=== PATIENT | female | born 1965 | race Two or more races ===

== ENCOUNTER → 2024-07-20 | Outpatient (CLI) | payer OTHER, SELFPAY ==
[2024-07-20 08:56] LABS: Prothrombin Time 21.1 Seconds (9.0-12.2)
== END | disposition home or self-care (01) ==
PROVIDERS: PCP Nurse Practitioner Family; Referring Provider Internal Medicine Cardiovascular Disease; Visit Provider Internal Medicine Cardiovascular Disease
DX: Z01.89 Encounter for other specified special examinations (principal)
CPT/HCPCS: 36415; 85610

== ENCOUNTER → 2024-09-01 | Outpatient (CLI) | payer OTHER, SELFPAY ==
[2024-09-01 17:58] LABS: INR 1.9 (0.9-1.3); Prothrombin Time 20.3 Seconds (9.0-12.2)
== END | disposition home or self-care (01) ==
LOC: COPL 16:26
PROVIDERS: Referring Provider Internal Medicine Cardiovascular Disease; Visit Provider Internal Medicine Cardiovascular Disease
DX: Z01.89 Encounter for other specified special examinations (principal)
CPT/HCPCS: 36415; 85610

== ENCOUNTER → 2024-09-28 | Outpatient (CLI) | payer OTHER, SELFPAY ==
[2024-09-28 08:37] LABS: Basophils % (Auto) 1 % (0-2.5); Eosinophils # (Auto) 0.1 Thou/mm3 (0.0-0.5); Eosinophils % (Auto) 3 % (0-10); Hematocrit 40.3 % (36.0-46.0); Hemoglobin 13.2 g/dL (12.0-16.0); Immature Granulocytes % (Auto) 0 % (0-0); Lymphocytes # (Auto) 1.2 Thou/mm3 (1.0-4.8); Lymphocytes % (Auto) 56 % (10-50); Mean Corpuscular HGB Conc 32.8 g/dl (31.0-37.0); Mean Corpuscular Hemoglobin 28.8 pg (25.0-35.0); Mean Corpuscular Volume 88 fL (80-100); Monocytes # (Auto) 0.3 Thou/mm3 (0.0-0.8); Monocytes % (Auto) 14 % (0-12); Neutrophils # (Auto) 0.6 Thou/mm3 (1.8-7.7); Neutrophils % (Auto) 26 % (37-80); Nucleated Red Blood Cell % 0 /100 WBC (0); Platelet Count 217 Thou/mm3 (140-440); RDW Standard Deviation 41.4 fL (36.4-46.3); Red Blood Count 4.59 Miln/mm3 (4.00-5.20)
[2024-09-28 08:47] LABS: White Blood Count 2.2 Thou/mm3 (3.6-11.0)
[2024-09-28 09:00] LABS: Alanine Aminotransferase 21 U/L (10-49); Albumin/Globulin Ratio 1.3 (1.2-2.2); Alkaline Phosphatase 77 U/L (46-116); Anion Gap 9 (7-16); Aspartate Amino Transferase 20 U/L (0-34); BUN/Creatinine Ratio 23 Ratio (12-20); Bilirubin,Total 0.3 mg/dL (0.3-1.2); Blood Urea Nitrogen 18 mg/dL (9-23); Calcium 9.2 mg/dL (8.3-10.6); Calcium (Corrected) 9.2 mg/dL (8.5-10.1); Carbon Dioxide 24.6 mMol/L (20.0-31.0); Chloride 109 mMol/L (98-107); Creatinine (Component) 0.8 mg/dL (0.6-1.3); Free T4 (Free Thyroxine) 1.04 ng/dL (0.89-1.76); Globulin 3.1 gm/dL (2.3-3.5); Glucose 94 mg/dL (74-106); Osmolality,Calculated 286 (275-295); Potassium 4.3 mMol/L (3.4-5.1); Sodium 143 mMol/L (136-145); Thyroid Stimulating Hormone 4.22 uIU/mL (0.55-4.78); Total Protein 7.1 gm/dL (5.7-8.2); eGFR > 60 See Note
== END | disposition home or self-care (01) ==
PROVIDERS: PCP Nurse Practitioner Family; Referring Provider Nurse Practitioner Family; Visit Provider Nurse Practitioner Family
DX: D72.819 Decreased white blood cell count, unspecified (principal)
CPT/HCPCS: 36415; 80053; 84439; 84443; 85025

== ENCOUNTER → 2024-10-13 | Outpatient (CLI) | payer OTHER, SELFPAY ==
[2024-10-13 17:57] LABS: INR 1.5 (0.9-1.3); Prothrombin Time 16.1 Seconds (9.0-12.2)
== END | disposition home or self-care (01) ==
LOC: COPL 16:56
PROVIDERS: PCP Nurse Practitioner Family; Referring Provider Internal Medicine Cardiovascular Disease; Visit Provider Internal Medicine Cardiovascular Disease
DX: I48.0 Paroxysmal atrial fibrillation (principal)
CPT/HCPCS: 36415; 85610

== ENCOUNTER → 2024-10-28 | Outpatient (CLI) | payer OTHER, SELFPAY ==
[2024-10-28 09:03] LABS: INR 2.3 (0.9-1.3); Prothrombin Time 23.7 Seconds (9.0-12.2)
== END | disposition home or self-care (01) ==
LOC: COPL 08:16
PROVIDERS: PCP Nurse Practitioner Family; Referring Provider Internal Medicine Cardiovascular Disease; Visit Provider Internal Medicine Cardiovascular Disease
DX: I48.0 Paroxysmal atrial fibrillation (principal)
CPT/HCPCS: 36415; 85610

== ENCOUNTER 2024-11-10 13:28 | Outpatient (RCR) | payer OTHER, SELFPAY ==
--- NOTE | 2024-11-10 14:42 | CTCCONSULT_ITS ---
Patient: STACY LOZANO : 1965 MR#: [id number] Page 3 of 4 CONSULTATION NOTE DATE OF CONSULTATION: 11/10/2024 NAME: STACY LOZANO ACCOUNT: [id number] : 1965 AGE: 59 REFERRING PHYSICIAN: Blanca Wagner MD PRIMARY PHYSICIAN: Blanca Wagner MD REASON FOR VISIT: Leukopenia HISTORY OF PRESENT ILLNESS: 59-year-old female with the many medical problems and on amiodarone is here for leukopenia. Patient states that she has been on all the medication she is taking now but her leukopenia has been for last 6 months. She has not changed her diet or started any new drugs. She also have hypothyroidism and takes levothyroxine. Denies any recurrent infections. Does not have any nonhealing wounds. No personal history of cancer OTHER MEDICAL HISTORY/CONDITIONS: CARDIAC DISEASE SEEING DR PHILLIPS THYROID DISEASE HYPOTHYROID DEGENERATION OF LUMBAR INTERVERTEBRAL DISC CHRONIC HEADACHES HYPERTENSION SEASONAL ALLERGIES ASTHMA CHOLECYSTECTOMY VARICOSE VEIN BILATERAL SURGERY 11/21/22 FAMILY HISTORY: Father:?DENIES Mother:?DENIES Sibling:?DENIES Children:?DENIES Patient?denies?family?cancer?history. 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 Tobacco?Use:?DENIES ETOH?Use:?DENIES Drug?Note:?DENIES Social?History?Note:?LIVES?[place] HISTORY: Menarche?-?Age:?15 Menopause:?51 Hormone?Use:?ADMITS?BC?PILLS?IN?PAST :?3 Live?Births:?3 Age?1st?:?21 Gynecological?Note:?MAMMOGRAM?LAST?YEAR MEDICATIONS: 1. None Medications Never Reconciled (Reconcile on Approval: ?) ALLERGIES: No Known Allergies REVIEW OF SYSTEMS: A complete 14-point review of systems was performed and is negative except as noted in interval history. PHYSICAL EXAMINATION: VITAL SIGNS: Temperature?99, B/P?133/84, Height?62?inches, Oxygen?Saturation?97% Weight?193?lbs PAIN: 0 - No pain ECOG Performance Status: 0 - Asymptomatic and fully active GENERAL APPEARANCE: Appears well, in no apparent distress, appropriately interactive. HEENT: Normocephalic, no temporal wasting, normal conjunctiva, no scleral icterus, normal hearing, lips without lesions, neck normal range of motion. CARDIOVASCULAR: Not assessed. PULMONARY: Normal respiratory effort, no respiratory distress or use of accessory muscles, speaking in full sentences, no tachypnea. EXTREMITIES: No pedal edema or cyanosis. SKIN: Normal skin appearance. NEUROLOGIC: Alert and oriented x4. PSHYCHIATRIC: Appropriate affect, mood normal, behavior normal, intact thought and speech. LABORATORY DATA: I have personally reviewed and interpreted each of the patient?s relevant lab tests, abnormal findings are below: Date 09/28/24 ??WHITE?BLOOD?COUNT?(Thou/mm3) 2.2?L ??RED?BLOOD?COUNT?(Miln/mm3) 4.59 ??HEMOGLOBIN?(gm/dl) 13.2 ??HEMATOCRIT?(%) 40.3 ??PLATELET?COUNT?(Thou/mm3) 217 ??NEUTROPHILS?%,?AUTO?(%) 26?L ??LYMPH?%,?AUTO?(%) 56?H ??NEUTROPHILS,?AUTO?(Thou/mm3) 0.6?L ??GLUCOSE,RANDOM?(mg/dL) 94 ??BLOOD?UREA?NITROGEN?(mg/dL) 18 ??CREATININE?(mg/dL) 0.80 ??SODIUM?(mmol/L) 143 ??POTASSIUM?(mmol/L) 4.3 ??CHLORIDE?(mmol/L) 109?H ??AST/SGOT?(Unit/L) 20 ??ALT/SGPT?(Unit/L) 21 ??ALKALINE?PHOSPHATASE?(Unit/L) 77 ??BILIRUBIN,?TOTAL?(mg/dL) 0.3 ??PROTEIN?TOTAL?(gm/dl) 7.1 ??ALBUMIN,?SERUM?(gm/dl) 4.0 ??GLOBULIN?(gm/dl) 3.1 ??ALBUMIN/GLOBULIN?RATIO 1.3 ??CALCIUM,?SERUM?(mg/dL) 9.2 ??CALCIUM?SERUM?(CORRECTED)?(mg/dL) 9.2 ASSESSMENT/PLAN: Leukopenia -Discussed various causes of leukopenia including drugs including amiodarone -Will do bone marrow biopsy to evaluate for MDS Will do nutritional workup B12 folic acid ferritin and iron studies Will also check for hepatitis and HIV RTC after the workup is complete ORDERS: Order # Description [id number] Comprehensive Metabolic Panel - 12 + CBC with Auto Diff + [id number] Vitamin B-12 + Folic Acid; Serum + Ferritin + Iron Panel [id number] [facility] [id number] HIV-1/HIV-2 Single Assay [id number] Hep A, B and C panel RETURN TO CLINIC: 4 weeks I will see her back in the clinic in 4 weeks. BILLING AND COMPLIANCE: I reviewed external records from providers outside my specialty as summarized above. I spent a total of 50 minutes on this patient?s care on the day of their visit excluding time spent related to any billed procedures. This time includes time spent with the patient as well as time spent documenting in the medical record, reviewing patients records and tests, obtaining history, placing orders, communicating with other healthcare professionals, counseling the patient, family or caregiver, and/or care coordination for the diagnoses above. Electronically Signed by: {Object.Sanct_ID*PnP.NameFL@M}, {Object.Sanct_ID*PnP.Suffix@U} D: {Object.Sanct_Date} T: {Object.Sanct_Time} CC: PCP: Blanca Wagner Referring: Blanca Wagner This document was completed utilizing speech recognition software. Grammatical errors, random word insertions, pronoun errors, and incomplete sentences are an occasional consequence of this system due to software limitations, ambient noise, and hardware issues. Any formal questions or concerns about the content, text or information contained within the body of this dictation should be directly addressed to the provider for clarification.
== END 2024-11-21 23:59 | disposition home or self-care (01) ==
LOC: SCTC 13:28
PROVIDERS: PCP Nurse Practitioner Family; Referring Provider Nurse Practitioner Family; Visit Provider Internal Medicine Hematology & Oncology
DX: D72.819 Decreased white blood cell count, unspecified (principal)
CPT/HCPCS: 99213; G0463

== ENCOUNTER → 2024-11-18 | Outpatient (CLI) | payer OTHER, SELFPAY ==
[2024-11-18 11:39] LABS: Basophils % (Auto) 1 % (0-2.5); Eosinophils # (Auto) 0.1 Thou/mm3 (0.0-0.5); Eosinophils % (Auto) 3 % (0-10); Hematocrit 38.5 % (36.0-46.0); Hemoglobin 12.9 g/dL (12.0-16.0); Immature Granulocytes % (Auto) 0 % (0-0); Immature Granulocytes Auto 0.01 Thou/mm3 (0.00-0.00); Lymphocytes # (Auto) 1.2 Thou/mm3 (1.0-4.8); Lymphocytes % (Auto) 52 % (10-50); Mean Corpuscular HGB Conc 33.5 g/dl (31.0-37.0); Mean Corpuscular Hemoglobin 29.1 pg (25.0-35.0); Mean Corpuscular Volume 87 fL (80-100); Monocytes # (Auto) 0.3 Thou/mm3 (0.0-0.8); Monocytes % (Auto) 14 % (0-12); Neutrophils # (Auto) 0.7 Thou/mm3 (1.8-7.7); Neutrophils % (Auto) 30 % (37-80); Nucleated Red Blood Cell % 0 /100 WBC (0); Platelet Count 202 Thou/mm3 (140-440); RDW Standard Deviation 41.1 fL (36.4-46.3); Red Blood Count 4.44 Miln/mm3 (4.00-5.20)
[2024-11-18 11:49] LABS: White Blood Count 2.4 Thou/mm3 (3.6-11.0)
[2024-11-18 12:06] LABS: Alanine Aminotransferase 25 U/L (10-49); Albumin, Serum 4.1 gm/dL (3.5-5.0); Albumin/Globulin Ratio 1.5 (1.2-2.2); Alkaline Phosphatase 76 U/L (46-116); Anion Gap 11 (7-16); Aspartate Amino Transferase 21 U/L (0-34); BUN/Creatinine Ratio 16 Ratio (12-20); Bilirubin,Total 0.4 mg/dL (0.3-1.2); Blood Urea Nitrogen 13 mg/dL (9-23); Calcium 9.3 mg/dL (8.3-10.6); Calcium (Corrected) 9.3 mg/dL (8.5-10.1); Carbon Dioxide 23.9 mMol/L (20.0-31.0); Chloride 106 mMol/L (98-107); Creatinine (Component) 0.8 mg/dL (0.6-1.3); Globulin 2.8 gm/dL (2.3-3.5); Glucose 89 mg/dL (74-106); Osmolality,Calculated 280 (275-295); Potassium 4.1 mMol/L (3.4-5.1); Sodium 141 mMol/L (136-145); Total Protein 6.9 gm/dL (5.7-8.2); eGFR > 60 See Note
[2024-11-18 12:09] LABS: Ferritin 124 ng/mL (7.3-270.7); Iron 47 mcg/dL (50-170); Percent Iron Saturation 15 % (20-55); Total Iron Binding Capacity 312 mcg/dL (250-425); Unsaturated Iron Binding 265 (225-295)
[2024-11-18 12:56] LABS: Folate 22.11 ng/mL (>5.38); HIV (1&2) Antibody Rapid Non-Reactive; Hepatitis A Antibody IgM Non Reactive (Non React); Hepatitis B Core Antibody IgM Non Reactive (Non React); Hepatitis B Surface Antigen Non Reactive (Non React); Hepatitis C Antibody Non Reactive (Non React); Vitamin B12 482 pg/mL (211-911)
== END | disposition home or self-care (01) ==
LOC: SCTO 09:42
PROVIDERS: PCP Nurse Practitioner Family; Referring Provider Internal Medicine Hematology & Oncology; Visit Provider Internal Medicine Hematology & Oncology
DX: D72.819 Decreased white blood cell count, unspecified (principal)
CPT/HCPCS: 36415; 80053; 80074; 82607; 82728; 82746; 83540; 83550; 85025; 86703

== ENCOUNTER → 2024-12-14 | Outpatient (CLI) | payer OTHER, SELFPAY ==
[2024-12-14 08:57] LABS: INR 3.4 (0.9-1.3)
[2024-12-14 09:01] LABS: Prothrombin Time 34.4 Seconds (9.0-12.2)
== END | disposition home or self-care (01) ==
LOC: COPL 07:42
PROVIDERS: PCP Nurse Practitioner Family; Referring Provider Internal Medicine Cardiovascular Disease; Visit Provider Internal Medicine Cardiovascular Disease
DX: I48.0 Paroxysmal atrial fibrillation (principal)
CPT/HCPCS: 36415; 85610

== ENCOUNTER 2024-12-21 15:13 | Outpatient (RCR) | payer OTHER, SELFPAY | END 2024-12-21 23:59 | disposition home or self-care (01) | LOC: SCTC 15:13 | PROVIDERS: PCP Nurse Practitioner Family; Referring Provider Nurse Practitioner Family; Visit Provider Nurse Practitioner Family | DX: D72.819 Decreased white blood cell count, unspecified (principal); E61.1 Iron deficiency; Z78.0 Asymptomatic menopausal state | CPT/HCPCS: 99212; G0463 ==

== ENCOUNTER → 2024-12-26 | Outpatient (CLI) | payer OTHER, SELFPAY ==
[2024-12-26 08:59] LABS: INR 2.2 (0.9-1.3); Prothrombin Time 23.2 Seconds (9.0-12.2)
== END | disposition home or self-care (01) ==
LOC: COPL 07:00
PROVIDERS: PCP Nurse Practitioner Family; Referring Provider Internal Medicine Cardiovascular Disease; Visit Provider Internal Medicine Cardiovascular Disease
DX: I48.0 Paroxysmal atrial fibrillation (principal)
CPT/HCPCS: 36415; 85610

== ENCOUNTER 2025-01-24 07:10 | Outpatient (CLI) | payer OTHER, SELFPAY ==
--- NOTE | 2025-01-18 09:15 | PC.NURSE ---
patient scheduled for bone marrow biopsy and aspiration, took warfarin 01/17/25, procedure will be rescheduled per Dr. Boyd for a different date once patient holds warfarin.
[2025-01-20 09:09] VITALS: BMI 34.7
[2025-01-23 15:24] LABS: Basophils % (Auto) 1 % (0-2.5); Eosinophils # (Auto) 0.1 Thou/mm3 (0.0-0.5); Eosinophils % (Auto) 2 % (0-10); Hematocrit 36.5 % (36.0-46.0); Hemoglobin 12.4 g/dL (12.0-16.0); Immature Granulocytes % (Auto) 0 % (0-0); Lymphocytes % (Auto) 57 % (10-50); Mean Corpuscular Hemoglobin 29.4 pg (25.0-35.0); Mean Corpuscular Volume 87 fL (80-100); Monocytes # (Auto) 0.4 Thou/mm3 (0.0-0.8); Monocytes % (Auto) 10 % (0-12); Neutrophils # (Auto) 1.1 Thou/mm3 (1.8-7.7); Neutrophils % (Auto) 30 % (37-80); Nucleated Red Blood Cell % 0 /100 WBC (0); Platelet Count 198 Thou/mm3 (140-440); RDW Standard Deviation 40.8 fL (36.4-46.3); Red Blood Count 4.22 Miln/mm3 (4.00-5.20); White Blood Count 3.6 Thou/mm3 (3.6-11.0)
[2025-01-23 15:36] LABS: Partial Thromboplastin Time 27.7 Seconds (22.0-36.0); Prothrombin Time 11.2 Seconds (9.0-12.2)
[2025-01-24] VITALS (10 sets, daily range): BP systolic 110–186; BP diastolic 62–99; PULSE 45–55; RESP 12–18; TEMP 36.1–36.7; O2SAT 94–100
--- NOTE | 2025-01-24 08:30 | XR_ITS ---
Examination: CT-guided percutaneous bone marrow aspiration right posterior superior iliac crest CT-guided percutaneous bone biopsy deep right posterior superior iliac crest CT pelvis without intravenous contrast Date and time of procedure: January 24, 2025 0940 hours INDICATIONS: Diagnosis decreased white blood cell count unspecified Informed consent provided. A timeout was completed verifying correct patient, procedure, site and positioning. Technique: Axial 3 mm sections were obtained for localization of the right posterior superior iliac crest. Appropriate area is marked. The patient's site was prepped and draped in sterile fashion Maximal sterile barrier technique utilized, including hand hygiene Local anesthesia was obtained with 1% lidocaine. Low dose protocols were performed. One or more of the following dose reduction techniques were used; automated exposure control, adjustment of the mA and/or KV according to patient size, use of iterative reconstruction technique. Utilizing CT fluoroscopic guidance, 14-gauge bone biopsy needle placed in the right posterior superior iliac crest 10 cc marrow aspirate obtained deemed adequate by the technologist 5 cm bone core obtained Patient appears in stable condition during this procedure. At completion of the procedure, the patient is in satisfactory condition. Estimated blood loss 3 cc Complete pathology report to follow. Impression: Successful CT-guided percutaneous bone marrow aspiration right posterior superior iliac crest Successful CT-guided percutaneous bone biopsy deep right posterior superior iliac crest
[2025-01-24] MEDS: SODIUM CHLORIDE 0.9% 500 ML 500 ML 20 ML IV (09:55)
[2025-01-24] MEDS: fentaNYL CIT INJ 50 mCg/ML AMP 2ML 75 MCG IVP (10:10)
[2025-01-24 10:13] LABS: Flow Cytometry* See Sep Rpt
[2025-01-24] MEDS: LIDOCAINE INJ PF 1% 30 ML VIAL 10 ML INFL (10:19)
--- NOTE | 2025-01-24 12:04 | PC.NURSE ---
Addendum entered by Yenni Sprague RN 01/24/25 17:31: patient has asymptomatic bradycardia, states she sees Dr. Bruce who monitors her on a monthly basis and is aware of low heart rate Original Note: 1015 patient is awake, alert, breathing unlabored, s/p bone marrow biopsy and aspiration, dressing to lower back dry with no bleeding, report received from Erick YOUNG, patient to recover for 1 hour. May resume warfarin 1140 patient is awake, alert, breathing unlabored, dressing dry with no bleeding, patient able to tolerate 7 up with no nausea or vomiting, meets discharge criteria, discharge instructions given to patient and [place]. Patient discharged home in wheelchair with all belongings.
== END 2025-01-24 11:41 | disposition home or self-care (01) ==
PROVIDERS: Radiology Diagnostic Radiology; PCP Nurse Practitioner Family; Referring Provider Internal Medicine Hematology & Oncology; Visit Provider Internal Medicine Hematology & Oncology
DX: D72.819 Decreased white blood cell count, unspecified (principal); Z01.812 Encounter for preprocedural laboratory examination
CPT/HCPCS: 38221; 36415; 77012; 85025; 85610; 85730; J3010; J3490; J7040

== ENCOUNTER 2025-02-02 15:16 | Outpatient (RCR) | payer OTHER, SELFPAY | END 2025-02-20 23:59 | disposition home or self-care (01) | LOC: SCTC 15:16 | PROVIDERS: PCP Nurse Practitioner Family; Referring Provider Nurse Practitioner Family; Visit Provider Nurse Practitioner Family | DX: D50.9 Iron deficiency anemia, unspecified (principal) | CPT/HCPCS: 99212; G0463 ==

== ENCOUNTER → 2025-02-15 | Outpatient (CLI) | payer OTHER, SELFPAY ==
[2025-02-15 17:28] LABS: Basophils % (Auto) 1 % (0-2.5); Eosinophils # (Auto) 0.1 Thou/mm3 (0.0-0.5); Eosinophils % (Auto) 3 % (0-10); Hematocrit 38.4 % (36.0-46.0); Immature Granulocytes % (Auto) 0 % (0-0); Lymphocytes # (Auto) 2.1 Thou/mm3 (1.0-4.8); Lymphocytes % (Auto) 60 % (10-50); Mean Corpuscular HGB Conc 33.9 g/dl (31.0-37.0); Mean Corpuscular Hemoglobin 30.1 pg (25.0-35.0); Mean Corpuscular Volume 89 fL (80-100); Monocytes # (Auto) 0.3 Thou/mm3 (0.0-0.8); Monocytes % (Auto) 9 % (0-12); Neutrophils # (Auto) 0.9 Thou/mm3 (1.8-7.7); Neutrophils % (Auto) 27 % (37-80); Nucleated Red Blood Cell % 0 /100 WBC (0); Platelet Count 215 Thou/mm3 (140-440); RDW Standard Deviation 42.6 fL (36.4-46.3); Red Blood Count 4.32 Miln/mm3 (4.00-5.20); Reticulocyte % (Auto) 1.6 % (0.5-1.5); Reticulocyte Absolute Auto 69.1 Biln/L (25.0-75.0); Reticulocyte Hgb Content 33.4 pg (28.0-35.0); White Blood Count 3.5 Thou/mm3 (3.6-11.0)
[2025-02-15 17:34] LABS: INR 1.9 (0.9-1.3)
[2025-02-15 17:41] LABS: Ferritin 151 ng/mL (7.3-270.7); Iron 58 mcg/dL (50-170); Percent Iron Saturation 18 % (20-55); Total Iron Binding Capacity 319 mcg/dL (250-425); Unsaturated Iron Binding 261 (225-295)
[2025-02-15 17:42] LABS: Folate 23.99 ng/mL (>5.38); Vitamin B12 525 pg/mL (211-911)
== END | disposition home or self-care (01) ==
LOC: SCTO 16:14
PROVIDERS: PCP Nurse Practitioner Family; Referring Provider Internal Medicine Cardiovascular Disease; Visit Provider Nurse Practitioner Family
DX: D72.819 Decreased white blood cell count, unspecified (principal); I48.0 Paroxysmal atrial fibrillation
CPT/HCPCS: 36415; 82607; 82728; 82746; 83540; 83550; 85025; 85046; 85610

== ENCOUNTER 2025-03-06 15:16 | Outpatient (RCR) | payer OTHER, SELFPAY | END 2025-03-23 23:59 | disposition home or self-care (01) | LOC: SCTC 15:16 | PROVIDERS: PCP Nurse Practitioner Family; Referring Provider Nurse Practitioner Family; Visit Provider Nurse Practitioner Family | DX: D50.9 Iron deficiency anemia, unspecified (principal); D72.819 Decreased white blood cell count, unspecified | CPT/HCPCS: 99212; G0463 ==

== ENCOUNTER → 2025-04-12 | Outpatient (CLI) | payer OTHER, SELFPAY ==
[2025-04-12 13:49] LABS: INR 2.9 (0.9-1.3); Prothrombin Time 29.1 Seconds (9.0-12.2)
== END | disposition home or self-care (01) ==
LOC: COPL 12:49
PROVIDERS: PCP Family Medicine; Referring Provider Internal Medicine Cardiovascular Disease; Visit Provider Internal Medicine Cardiovascular Disease
DX: I48.0 Paroxysmal atrial fibrillation (principal)
CPT/HCPCS: 36415; 85610

== ENCOUNTER → 2025-05-19 | Outpatient (CLI) | payer OTHER, SELFPAY ==
[2025-05-19 13:58] LABS: INR 2.3 (0.9-1.3); Prothrombin Time 23.7 Seconds (9.0-12.2)
== END | disposition home or self-care (01) ==
PROVIDERS: PCP Nurse Practitioner Family; Referring Provider Internal Medicine Cardiovascular Disease; Visit Provider Internal Medicine Cardiovascular Disease
DX: I48.0 Paroxysmal atrial fibrillation (principal)
CPT/HCPCS: 36415; 85610

== ENCOUNTER 2025-06-01 14:24 | Outpatient (AMB) | payer OTHER, SELFPAY ==
[2025-06-01 14:38] VITALS: BP 144/79; PULSE 45; RESP 17; TEMP 36.4; O2SAT 95; BMI 35.5
--- NOTE | 2025-06-01 14:38 | AMB.GYNCLNOT ---
Vital Signs 06/01/25 14:38 Height 1.57 m Height Method Stated Weight 88.224 kg Weight Measurement Method Standing Scale BMI 35.5 BP 144/79 H Blood Pressure Source Automatic Cuff Blood Pressure Location Right Upper Arm Position Sitting Respiration 17 Pulse 45 L Pulse Source Monitor Temp 97.6 F Temp Source Temporal Artery Scan Pulse Oximetry (%) 95 Oxygen Delivery Method Room Air Allergies/Home Meds Allergies & Medications Allergies No Known Allergies Allergy (Verified 06/01/25 14:40) Medication Reconciliation metoprolol tartrate 25 mg tablet 25 mg PO BID #60 tabs 08/10/18 [Rx Confirmed 06/01/25] acetaminophen 650 mg/20.3 mL oral solution 650 mg PO Q8HR 01/24/25 [History Confirmed 06/01/25] albuterol sulfate 90 mcg/actuation aerosol inhaler 1 puff inhalation Q8H 01/24/25 [History Confirmed 06/01/25] amiodarone 200 mg tablet 200 mg PO QDAY 01/24/25 [History Confirmed 06/01/25] ferrous sulfate 325 mg (65 mg iron) tablet (Feosol) 325 mg PO QDAY 01/24/25 [History Confirmed 06/01/25] loratadine 10 mg tablet (Allergy Relief (loratadine)) 10 mg PO QDAY 01/24/25 [History Confirmed 06/01/25] nitroglycerin 0.4 mg sublingual tablet 0.4 mg buccal [id number] 01/24/25 [History Confirmed 06/01/25] warfarin 4 mg tablet 4 mg PO QDAY 01/24/25 [History Confirmed 06/01/25] Held on 01/24/25. Instructions: Resume on 01/26/25. hold warfarin for 2 days Intake Visit Data Collection New Patient or Established: Established Patient (seen at [facility] within 3 years) Reason for Visit:: NEW PT POST MENOPAUSAL BLEEDING Seen by Clinical Staff ONLY (RN/MA): No It Compliance Analyst Required: Yes It Compliance Analyst's name/title: LIZA BARRETT MA Do You Feel Safe at Home: Yes Authorities Contacted: N/A PCP or OBGYN visit in last 3 months: No Hx Now: No Are you currently on any form of Control: No Pain Present Currently: No Pain Scale Used: Pena-Gaines/Numerical Pain scale:: 0 Smoking Status Smoking Status: Never smoker Pipe Smoker 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 1. Little interest or pleasure in doing things: not at all 2. Feeling down, depressed, or hopeless: not at all Total score: 0 PHQ-9 3. Trouble falling or staying asleep, or sleeping too much: Not at all 4. Feeling tired or having little energy: Not at all 5. Poor appetite or overeating: Not at all 6. Feeling bad about yourself - or that you are a failure or have let yourself or your family down: Not at all 7. Trouble concentrating on things, such as reading the newspaper or watching television: Not at all 8. Moving or speaking so slowly that other people could have noticed? - Or the opposite - being so fidgety or restless that you have been moving around a lot more than usual: not at all 9. Thoughts that you would be better off or of hurting yourself in some way: Not at all Total score: 0 If you checked off any problems, how difficult have these problems made it for you to do your work, take care of things at home, or get along with other people?: not difficult at all Source: Developed by Drs. Justus Shukla, Noreen Dumont, Blaze Gtz and colleagues, with an educational destin from [employer]. Depression screen completed yes Social History Living Situation History Marital Status: Lives With: Family Housing: House Tobacco History Smoking Status: Never smoker Second Hand Smoke Exposure: No Alcohol History Alcohol Intake: Never Domestic Abuse History Do You Feel Safe at Home: Yes History of Present Illness HPI Narrative Postmenopausal bleeding, one episode of brown-colored bleeding Elodia Lozano is a postmenopausal woman who presents with a single episode of vaginal bleeding. The patient experienced one episode of bleeding that was brown in color rather than bright red. She is currently in menopause and had not been experiencing any bleeding prior to this episode. Medical History: - Menopause Surgical History: - Colonoscopy Exam General General Appearance: alert, in no apparent distress and healthy appearing Head Head exam: atraumatic Neck Neck exam: Present normal inspection and trachea midline Chest Chest inspection: Present normal inspection and symmetric chest wall rise External exam: Present normal external exam; Absent tenderness Neuro Neurological exam: Present oriented X3 Psych Psychiatric exam: Present normal affect and normal mood Office Procedures [facility] Clinic LOC & Office Proc's Nursing/Assessment Patient Status: Established Patient OB Clinic Nursing Assessment: Medication Reconciliation, Update PMH in EMR and Vital Signs OB Clinic Coordination of Care: Complex Care and Chronic Disease 1-5, Education Complex Pt/Fam, Consent,records obtained, informed consent, Lab and Imaging orders and Staff clarify orders Established Patient Charge Established Patient Point Assignment: 105 Established Patient Point Charge: EP Level 3 (80-115) Assessment & Plan Diagnosis / Problem List (1) Post-menopausal bleeding: Status: Acute Plan Postmenopausal bleeding Assessment: Patient experienced one episode of brown-colored vaginal bleeding in the setting of menopause. This is likely related to hormonal changes that occur during menopause, where hormones decrease causing the endometrium to become thin and dry, which can result in bleeding. This presentation is generally not concerning for malignancy based on the single episode and characteristics described. Plan: - Order pelvic ultrasound to evaluate the endometrium - Follow-up appointment after ultrasound completion - Return immediately if bleeding recurs
== END 2025-06-01 15:01 | disposition home or self-care (01) ==
LOC: HODSOBC 14:24
PROVIDERS: PCP Family Medicine; Referring Provider Family Medicine; Supervising Provider Obstetrics & Gynecology; Visit Provider Obstetrics & Gynecology
DX: N95.0 Postmenopausal bleeding (principal); E03.9 Hypothyroidism, unspecified
CPT/HCPCS: 99213; G0463

== ENCOUNTER → 2025-06-29 | Outpatient (CLI) | payer OTHER, SELFPAY ==
--- NOTE | 2025-06-29 16:15 | XR_ITS ---
Examination: Pelvic ultrasound, transabdominal, complete Technique: Transabdominal ultrasound of the pelvis performed using grayscale imaging Date and time of exam: June 29, 2025, 1613 hours INDICATIONS: Vaginal bleeding episode 4 months ago FINDINGS: Uterus 7.0 cm endometrial stripe 0.4 cm No uterine mass or intrauterine gestation Ovaries obscured by bowel gas IMPRESSION: Limited study No uterine mass or intrauterine gestation
== END | disposition home or self-care (01) ==
LOC: CDIM 16:01
PROVIDERS: PCP Nurse Practitioner Family; Referring Provider Obstetrics & Gynecology; Visit Provider Obstetrics & Gynecology
DX: N93.9 Abnormal uterine and vaginal bleeding, unspecified (principal); N95.0 Postmenopausal bleeding
CPT/HCPCS: 76856

== ENCOUNTER → 2025-07-14 | Outpatient (CLI) | payer OTHER, SELFPAY ==
[2025-07-14 16:52] LABS: INR 3.8 (0.9-1.3)
[2025-07-14 17:18] LABS: Prothrombin Time 35.6 Seconds (9.0-12.2)
== END | disposition home or self-care (01) ==
LOC: COPL 15:46
PROVIDERS: PCP Nurse Practitioner Family; Referring Provider Internal Medicine Cardiovascular Disease; Visit Provider Internal Medicine Cardiovascular Disease
DX: I48.0 Paroxysmal atrial fibrillation (principal)
CPT/HCPCS: 36415; 85610

== ENCOUNTER → 2025-08-04 | Outpatient (CLI) | payer OTHER, SELFPAY ==
[2025-08-04 11:02] LABS: INR 2.2 (0.9-1.3); Prothrombin Time 21.5 Seconds (9.0-12.2)
== END | disposition home or self-care (01) ==
LOC: COPL 09:49
PROVIDERS: PCP Family Medicine; Referring Provider Internal Medicine Cardiovascular Disease; Visit Provider Internal Medicine Cardiovascular Disease
DX: I48.0 Paroxysmal atrial fibrillation (principal)
CPT/HCPCS: 36415; 85610